=== PATIENT | male | born 1950 | race Caucasian/White ===

== ENCOUNTER 2021-01-10 13:58 | Inpatient (IN) ==
[2021-01-10 14:12] LABS: BORDETELLA PARAPERTUSSIS (PCR) NOT DETECTED (NOT DETECT); BORDETELLA PERTUSSIS (PCR) NOT DETECTED (NOT DETECT); CHLAMYDIA PNEUMONIAE (PCR) NOT DETECTED (NOT DETECT); CORONAVIRUS 229E (PCR) NOT DETECTED (NOT DETECT); CORONAVIRUS HKU1 (PCR) NOT DETECTED (NOT DETECT); CORONAVIRUS NL63 (PCR) NOT DETECTED (NOT DETECT); CORONAVIRUS OC43 (PCR) NOT DETECTED (NOT DETECT); HUMAN METAPNEUMOVIRUS (PCR) NOT DETECTED (NOT DETECT); HUMAN RHINOVIRUS/ENTEROV (PCR) NOT DETECTED (NOT DETECT); INFLUENZA B (PCR) NOT DETECTED (NOT DETECT); MYCOPLASMA PNEUMONIAE (PCR) NOT DETECTED (NOT DETECT); PARAINFLUENZA VIRUS 1 (PCR) NOT DETECTED (NOT DETECT); PARAINFLUENZA VIRUS 2 (PCR) NOT DETECTED (NOT DETECT); PARAINFLUENZA VIRUS 3 (PCR) NOT DETECTED (NOT DETECT); PARAINFLUENZA VIRUS 4 (PCR) NOT DETECTED (NOT DETECT); RESPIRATORY SYNCYTIAL V (PCR) NOT DETECTED (NOT DETECT); SARS_COV_2 (PCR) NOT DETECTED (NOT DETECT)
[2021-01-10 15:02] LABS: ADENOVIRUS (PCR) NOT DETECTED (NOT DETECT)
[2021-01-10] MEDS ORDERED: NITROSTAT SL PRN (16:36)
[2021-01-10] MEDS ORDERED: ATROPINE SULFATE PFS IVP PRN (16:36)
[2021-01-10] MEDS ORDERED: TYLENOL PO PRN (16:36)
[2021-01-10 16:49] VITALS: BMI 34.9
[2021-01-10] MEDS ORDERED: LASIX IVP STA (16:50)
[2021-01-10 16:54] LABS: BASOPHILS % (AUTO) 0.4 % (0.0-3.0); EOSINOPHILS # (AUTO) 0.2 K/ul (0.0-0.7); EOSINOPHILS % (AUTO) 2.1 % (0.0-7.0); HEMATOCRIT 35.3 % (42.0-52.0); HEMOGLOBIN 11.7 g/dl (14.0-18.0); IMMATURE GRANULOCYTE # (AUTO) 0.1 (0.0-1.0); IMMATURE GRANULOCYTE % (AUTO) 0.6 % (0.0-5.0); LYMPHOCYTES # (AUTO) 1.4 K/uL (0.60-3.4); LYMPHOCYTES % (AUTO) 14.8 (10.0-50.0); MEAN CORPUSCULAR HEMOGLOBIN 30.2 pg (27.0-31.0); MEAN CORPUSCULAR HGB CONC 33.1 (31.8-35.4); MONOCYTES # (AUTO) 0.7 K/uL (0.4-2.0); MONOCYTES % (AUTO) 7.5 (0-10); NEUTROPHILS # (AUTO) 7.2 K/ul (2.0-6.9); NEUTROPHILS % (AUTO) 74.6 % (42.2-75.2); PLATELET COUNT 252 10^3/uL (140-440); RDW COEFFICIENT OF VARIATION 12.6 % (11.6-14.8); RED BLOOD COUNT 3.88 10^6/ul (4.70-6.10); WHITE BLOOD COUNT 9.62 K/ul (4.2-10.2)
[2021-01-10 17:05] LABS: ALANINE AMINOTRANSFERASE 16.8 U/L (0-50); ALBUMIN 4.15 g/dL (3.5-5.0); ALKALINE PHOSPHATASE 62.8 U/L (56-119); ASPARTATE AMINO TRANSFERASE 24.3 U/L (17-59); BILIRUBIN,TOTAL 0.66 mg/dL (0.2-1.3); BLOOD UREA NITROGEN 35.1 mg/dL (9-20); CALCIUM 8.99 mg/dL (8.4-10.2); CARBON DIOXIDE 27.8 mmol/L (22-30.0); CHLORIDE 102.3 mmol/L (98-107); CREATINE KINASE 53.4 U/L (55-170); CREATININE 1.72 mg/dL (0.60-1.10); GLUCOSE 121.9 mg/dL (74-106); SODIUM 137.8 mmol/L (134.5-145); TOTAL PROTEIN 7.31 g/dL (6.3-8.2)
[2021-01-10 17:18] LABS: TROPONIN I < 0.012 ng/ml (0.0000-0.120)
[2021-01-10] MEDS: OXYCODONE PO SCH ×2 (17:23→21:19)
--- NOTE | 2021-01-10 17:47 | DI ---
EXAM: CHEST FRONTAL VIEW HISTORY: Shortness of breath COMPARISON: None FINDINGS: Prominent heart size. No acute infiltrates are seen. No vascular congestion. There is n o consolidation, visible pleural fluid or pneumothorax. Bones reveal no acute fracture. IMPRESSION: No acute cardiopulmonary process.
[2021-01-10 18:22] LABS: BILIRUBIN,URINE Negative (NEGATIVE); CLARITY,URINE Clear (CLEAR); COLOR,URINE Yellow (YELLOW); GLUCOSE, URINE (UA) Negative (NEGATIVE); KETONES,URINE Negative (NEGATIVE); LEUKOCYTE ESTERASE ,URINE 1+ (NEGATIVE); NITRITE,URINE Negative (NEGATIVE); PH,URINE 5.5 (5-9); PROTEIN,URINE Negative (NEGATIVE); URINE, BLOOD Negative (NEGATIVE); UROBILINOGEN,URINE 0.2 (0.2)
[2021-01-10 18:24] LABS: SQUAMOUS EPITHELIAL CELL,UR NOT PRESENT (0-5); URINE WBC, MICROSCOPIC 0-2 (0-2)
[2021-01-10] MEDS: KEFLEX PO SCH (21:18)
[2021-01-10] MEDS ORDERED: NON-FORMULARY MEDICATION (Gabapentin 400 MG) PO SCH (22:15)
[2021-01-10] MEDS ORDERED: NON-FORMULARY MEDICATION (Gabapentin 400 mg capsule) PO SCH (22:15)
[2021-01-10] MEDS ORDERED: NEURONTIN ONE (22:21)
[2021-01-11 01:00] LABS: BASOPHILS % (AUTO) 0.2 % (0.0-3.0); EOSINOPHILS # (AUTO) 0.3 K/ul (0.0-0.7); EOSINOPHILS % (AUTO) 2.5 % (0.0-7.0); HEMATOCRIT 34.1 % (42.0-52.0); HEMOGLOBIN 11.3 g/dl (14.0-18.0); IMMATURE GRANULOCYTE # (AUTO) 0.1 (0.0-1.0); IMMATURE GRANULOCYTE % (AUTO) 0.7 % (0.0-5.0); LYMPHOCYTES # (AUTO) 2.1 K/uL (0.60-3.4); MEAN CORPUSCULAR HGB CONC 33.1 (31.8-35.4); MEAN CORPUSCULAR VOLUME 90.5 fl (80.0-94.0); MONOCYTES # (AUTO) 0.8 K/uL (0.4-2.0); MONOCYTES % (AUTO) 7.5 (0-10); NEUTROPHILS # (AUTO) 7.2 K/ul (2.0-6.9); NEUTROPHILS % (AUTO) 69.1 % (42.2-75.2); PLATELET COUNT 237 10^3/uL (140-440); RDW COEFFICIENT OF VARIATION 12.2 % (11.6-14.8); RED BLOOD COUNT 3.77 10^6/ul (4.70-6.10); WHITE BLOOD COUNT 10.36 K/ul (4.2-10.2)
[2021-01-11 01:12] LABS: ALANINE AMINOTRANSFERASE 15.6 U/L (0-50); ALBUMIN 3.75 g/dL (3.5-5.0); ALKALINE PHOSPHATASE 59.4 U/L (56-119); ASPARTATE AMINO TRANSFERASE 23.4 U/L (17-59); BILIRUBIN,TOTAL 0.63 mg/dL (0.2-1.3); BLOOD UREA NITROGEN 35.3 mg/dL (9-20); CALCIUM 8.95 mg/dL (8.4-10.2); CARBON DIOXIDE 27.5 mmol/L (22-30.0); CHLORIDE 104.1 mmol/L (98-107); CREATININE 1.81 mg/dL (0.60-1.10); GLUCOSE 106.9 mg/dL (74-106); POTASSIUM 4.25 mmol/L (3.5-5.1); SODIUM 139.4 mmol/L (134.5-145); TOTAL PROTEIN 6.61 g/dL (6.3-8.2)
[2021-01-11 01:24] LABS: TROPONIN I < 0.012 ng/ml (0.0000-0.120)
[2021-01-11] MEDS: KEFLEX PO SCH ×3 (05:04→20:21)
[2021-01-11] MEDS: BENICAR PO SCH (08:40)
[2021-01-11] MEDS: ASPIRIN EC PO SCH (08:40)
[2021-01-11] MEDS: NORVASC PO SCH (08:41)
[2021-01-11] MEDS: MULTIVITAMIN TABLET PO SCH (08:41)
[2021-01-11] MEDS: OMEGA-3 FISH OIL PO SCH (08:41)
[2021-01-11] MEDS: OXYCODONE PO SCH ×4 (08:42→20:21)
[2021-01-11] MEDS ORDERED: MIRALAX PO PRN (08:51)
[2021-01-11] MEDS ORDERED: HYDROCHLOROTHIAZIDE PO SCH (09:00)
--- NOTE | 2021-01-11 09:55 | PCM.PROG ---
Attending Provider: ATTENDING PROVIDER: Dr. SHELBY GARCIA This patient is seen with Ina Regalado, Nurse Practitioner. DATE OF SERVICE: 01/11/21 SUBJECTIVE: This 70 year old /WHITE M was hospitalized 01/10/21. The patient is lying in bed resting comfortably. He has not had venous scan yet. Right leg edema has somewhat improved. He has voided approximately 10 times since admission. REVIEW OF SYSTEMS: CONSTITUTIONAL: No night sweats. No fatigue, malaise, lethargy. No fever or chills. HEENT: Eyes: No visual changes. No eye pain. No eye discharge. ENT: No runny nose. No epistaxis. No sinus pain. No odynophagia. No congestion. RESPIRATORY: No cough, no congestion. No hemoptysis. No shortness of breath. CARDIOVASCULAR: No angina symptoms. No CHF symptoms. No atypical chest pain for CAD. No palpitations. No orthopnea.. GASTROINTESTINAL: No abdominal pain. No nausea or vomiting. No diarrhea or constipation. No hematemesis. No hematochezia. GENITOURINARY: No urgency. No frequency. No dysuria. No hematuria. No obstructive symptoms. No discharge. No pain. No significant abnormal bleeding. MUSCULOSKELETAL: Right leg pain and swelling. NEUROLOGICAL: Awake, alert, oriented to time, place and person. No headache. No neck pain. No syncope. No seizures. No dizziness. PSYCHIATRIC: Not anxious. No depression. No suicidal thoughts. No homicidal thoughts. SKIN: No rash. ENDOCRINE: No unexplained weight loss. No weight gain. HEMATOLOGIC/LYMPHATIC: No anemia. No purpura. No petechiae. No prolonged or excessive bleeding. No palpable lymph nodes. PHYSICAL EXAMINATION: GENERAL: The patient is awake, alert and oriented, lying/sitting in bed in no distress. VITAL SIGNS: Temperature 97.5 F, Pulse 59, Respiratory Rate 18, BP 103/60, Pu lse Ox 97% HEENT: Head normocephalic, atraumatic. Eyes: Extraocular muscles are intact. Pupils are equal, round and reactive to light and accommodation. Ears: No lesions. Nose appeared normal. Throat: No exudate or erythema. NECK: Supple. No JVD, no carotid bruit. No lymphadenopathy or thyromegaly. LUNGS: Diminished breath sounds. Clear to auscultation. Percussion note normal. Chest symmetrical. HEART: S1, S2, no S3. No murmurs. No cyanosis or clubbing. No ascites. Pulses: Dorsalis pedis and posterior tibial pulses +1 to +2 both sides. ABDOMEN: Soft. Non-tender. Bowel sounds active. No CVA tenderness. No mass felt. EXTREMITIES: Improved erythema right knee. +1 edema right lower extremity. No drainage. Full range of motion of all extremities, equal. NEUROLOGIC: No focal deficit. Cranial nerves II through XII are grossly intact. No headache. No double vision. SKIN: Not dry. Intact. Turgor-normal. LYMPHATIC: No palpable lymph nodes/no lymphedema. MUSCULOSKELETAL: Normal joints with no swelling. Muscle tone is normal. LAB REVIEW: 01/11/21 00:55 01/11/21 00:55 01/11/21 00:55: Sodium 139.4, Potassium 4.25, Chloride 104.1, Carbon Dioxide 27.5, Anion Gap 12.05, BUN 35.3 H, Creatinine 1.81 H, Estimated GFR (MDRD) 37.00, BUN/Creatinine Ratio 19.50, Glucose 106.9 H, Calcium 8.95, Total Bilirubin 0.63, AST 23.4, ALT 15.6, Alkaline Phosphatase 59.4, Total Creatine Kinase 49.0 L, Troponin I < 0.012, Total Protein 6.61, Albumin 3.75, Globulin 2.86, Albumin/Globulin Ratio 1.31 01/11/21 00:55: WBC 10.36 H, RBC 3.77 L, Hgb 11.3 L, Hct 34.1 L, MCV 90.5, MCH 30.0, MCHC 33.1, RDW Coeff of Mary 12.2, Plt Count 237, Immature Gran % (Auto) 0.7, Neut % (Auto) 69.1, Lymph % (Auto) 20.0, [place]erry % (Auto) 7.5, Eos % (Auto) 2.5, Baso % (Auto) 0.2, Neut # (Auto) 7.2 H, Lymph # (Auto) 2.1, [place]erry # (Auto) 0.8, Eos # (Auto) 0.3, Baso # (Auto) 0.0, Immature Gran # (Auto) 0.1 01/10/21 18:14: Urine Color Yellow, Urine Clarity Clear, Urine pH 5.5, Ur Specific [place] 1.015, Urine Protein Negative, Urine Glucose (UA) Negative, Urine Ketones Negative, Urine Blood Negative, Urine Nitrite Negative, Urine Bilirubin Negative, Urine Urobilinogen 0.2, Ur Leukocyte Esterase 1+ H, Urine Microscopic WBC 0-2, Ur Squamous Epith Cells Not present 01/10/21 16:48: WBC 9.62, RBC 3.88 L, Hgb 11.7 L, Hct 35.3 L, MCV 91.0, MCH 30.2, MCHC 33.1, RDW Coeff of Mary 12.6, Plt Count 252, Immature Gran % (Auto) 0.6, Neut % (Auto) 74.6, Lymph % (Auto) 14.8, [place]erry % (Auto) 7.5, Eos % (Auto) 2.1, Baso % (Auto) 0.4, Neut # (Auto) 7.2 H, Lymph # (Auto) 1.4, Ferry # (Auto) 0.7, Eos # (Auto) 0.2, Baso # (Auto) 0.0, Immature Gran # (Auto) 0.1 01/10/21 16:45: Sodium 137.8, Potassium 4.60, Chloride 102.3, Carbon Dioxide 27.8, Anion Gap 12.30, BUN 35.1 H, Creatinine 1.72 H, Estimated GFR (MDRD) 40.00, BUN/Creatinine Ratio 20.40, Glucose 121.9 H, Calcium 8.99, Total Bilirubin 0.66, AST 24.3, ALT 16.8, Alkaline Phosphatase 62.8, Total Creatine Kinase 53.4 L, Troponin I < 0.012, Total Protein 7.31, Albumin 4.15, Globulin 3.16, Albumin/Globulin Ratio 1.31 01/10/21 14:10: Adenovirus (PCR) Not detected, B. pertussis DNA (PCR) Not detected, B.parapertussis DNA PCR Not detected, C. pneumoniae DNA (PCR) Not detected, Coronavirus OC43 (PCR) Not detected, Coronavirus HKU1 (PCR) Not detected, Coronavirus 229E (PCR) Not detected, Coronavirus NL63 (PCR) Not detected, Human Metapneumovir PCR Not detected, Influenza Type A (PCR) Not detected, Influenza B (RT-PCR) Not detected, M. pneumoniae (PCR) Not detected, Parainfluenza 1 (PCR) Not detected, Parainfluenza 2 (PCR) Not detected, Parainfluenza 3 (PCR) Not detected, Parainfluenza 4 (PCR) Not detected, RSV (PCR) Not detected, Entero/Rhino (PCR) Not detected, SARS-CoV-2 (PCR) Not detected ASSESSMENT: Please see below. 1. Right lower extremity pain and swelling status post right total knee. 2. Chronic kidney disease, Stage II to III. PLAN: 1. Continue to hold diuretic. 2. Keep the right leg elevated. 3. Venous scan to be done first thing this morning. 4. Followup with PT consult/Eval. Plan and coordination of the patient's care discussed in the presence of Engine Research Engineer and nurse. CONDITION: Stable SCRIBED BY: Zulema HYMAN scribed while in presence of service performed by Dr. Garcia/Ina Regalado APRN on 01/11/21 ([id number])
--- NOTE | 2021-01-11 12:44 | US ---
EXAM: Ultrasound venous Doppler right and left lower extermity HISTORY: Increased swelling lower extremities COMPARISON: None TECHNIQUE: Venous duplex ultrasound of the right and left lower extremity was performed using color, moulton-scale, and Doppler flow imaging. FINDINGS: There is normal color flow and compression of the right and left common femoral, greater s aphenous, profunda femoral, femoral, popliteal, peroneal, posterior tibial, and anterior tibial veins without evidence of intraluminal thrombus. IMPRESSION: No right or left lower extremity deep venous thrombosis.
--- NOTE | 2021-01-11 15:15 | RS.PTINEVL ---
Subjective - Patient information Date of Evaluation: 01/11/21 Date of Arrival on Unit: 01/10/21 Admitted From:: Home Diagnosis: pain RLE, edema RLE, aftercare following knee joint replacement Usual Living Arrangement: With Spouse Home Environment: House, Stairs (few), Rail Medical History: Hypertension, Arthritis Surgical History: Knee Replacement (RTKR 2 weeks ago) Surgical History Comments:: rotator cuff repair, carpal tunnel surgery, appey Medications: see chart Subjective Information/ Patient Comments:: pt states that he thinks he did too much at home and his leg became more swollen and more painful. - Level of function Prior to this admission, the patient could do the following:: Independent Selfcare, Independent ADL's, Independent Ambulation, Partially Dependent Ambulation, Perform Wall Scraper/Cooking, Drive, Participated in Social Activities Outside home, Volunteer/Work Current Level of Function: Independent Current Equipment Used at Home: cane, bedside commode Pain Assessement - Location R knee Description: Tightness, Sharp, Aching Intensity: 4 Pain Behavior: Facial Grimacing Pain Aggravating Factors: Changing Position, Exercise/Activity, Standing, Walking Pain Alleviating Factors: Ice, Exercise Interventions - Objective Patient Orientation: Person, Place, Time, Situation Observation: pt with edema noted R knee and lower leg. pt incision intact no exudate noted. Range of Motion - ROM Right Upper Extremity AROM: WFL's Left Upper Extremity AROM: WFL's Right Lower Extremity AROM: Slight limitation (R knee AROM flex 82 ext -5, otherwise WFL's) Left Lower Extremity AROM: WFL's Muscle Strength - Muscle Strength Right Upper Extremity Strength: Normal (grossly 5/5) Left Upper Extremity Strength: Normal (grossly 5/5) Right Lower Extremity Strength: Mild Weakness (hip flex 4/5, knee flex/ext 3-/5, ankle DF/PF 4+/5) Left Lower Extremity Strength: Normal (grossly 5/5) Sensation - Sensation Right Upper Extremity Sensation: Intact/Normal Left Upper Extremity Sensation: Intact/Normal Right Lower Extremity Sensation: Impaired Left Lower Extremity Sensation: Impaired Comments: pt with n/t in B feet (toes and dorsum of foot) due to neuropathy Palpation Palpation Findings: Tenderness Comments:: in area of R knee incision Balance - Sitting Balance and Reactions Static Sitting Balance: Normal Dynamic Sitting Balance: Normal - Standing Balance and Reactions Static Standing Balance: Good Dynamic Standing Balance: Fair Functional Mobility - Bed Mobility Rolling R/L: Independent Scooting: Independent Supine to Sit: Independent Sit to Supine: Independent - Transfers Sit to Stand: Independent Stand to Sit: Independent - Safety Awareness Safety Awareness: Good AMOS INDEX SCORE: n/a Ambulation - Ambulation Assistive Device Used: Straight Cane Orthotic/Prosthetic Device: No Distance: 140ft Assistance needed with Ambulation: Independent Quality of Ambulation: antalgic gait, decreased heel strike/toe off gait pattern Factors Affecting Ambulation: Decreased Balance, Weakness, Decreased ROM Treatment time - Units charged Exercise: 1 - Time with patient Length of Evaluation: 18 Total treatment time: 29 Patient Education - Education Patient Education: Home Exercise Program, Education of Plan of Care Teaching Recipient: Patient Teaching Methods: Discussion, Demonstration Assessment - Assessment Problem List:: Decreased level of function, Weakness, Pain limits previous level of function Rehab Potential: Good Further Therapy Indicated?: Yes Candidate for Swing Bed for Therapy Services?: Feel pt does not require swing bed due to high functional level. Evaluation Complexity: HISTORY: Medium, EXAM OF BODY SYSTEMS: Medium, CLINICAL PRESENTATION: Medium, CLINICAL DECISION MAKING: Medium Patient's Goal(s): decrease swelling and improve R knee ROM Short Term Goals GOAL #1: Improve AAROM R knee flex 90 ext -3 Goal to be met by: 01/13/21 GOAL #2: pt rate pain R knee < 4/10 Goal to be met by: 01/13/21 GOAL #3: pt amb with improved heel strike/toe off gait pattern with cane no LOB Goal to be met by: 01/13/21 GOAL #4: Improve dyn stand balance good- Goal to be met by: 01/13/21 GOAL #5: . Skilled Nursing Goals GOAL #1: Improve R knee AROM flex 100 ext 0 Goal to be met by: 01/15/21 GOAL #2: Ascend/descend 4 steps without HR independently Goal to be met by: 01/15/21 GOAL #3: . Plan Plan of Care: Therapeutic EX, Therapeutic Activity Other:: gait training Frequency of Treatment: 1-2 X day, as tolerated Duration of Treatment: 2-3 days Anticipated Discharge Destination: Home Treatment Diagnosis (ICD 10 Codes): aftercare following knee joint replacement. R knee joint stiffness. weakness Has the Physician been added for Co-signature?: Yes
[2021-01-11] MEDS: NEURONTIN PO SCH (20:22)
[2021-01-12] MEDS: KEFLEX PO SCH ×3 (04:20→20:16)
[2021-01-12 05:26] LABS: BASOPHILS % (AUTO) 0.4 % (0.0-3.0); EOSINOPHILS # (AUTO) 0.3 K/ul (0.0-0.7); EOSINOPHILS % (AUTO) 3.4 % (0.0-7.0); HEMATOCRIT 33.3 % (42.0-52.0); HEMOGLOBIN 11.2 g/dl (14.0-18.0); IMMATURE GRANULOCYTE % (AUTO) 0.5 % (0.0-5.0); LYMPHOCYTES # (AUTO) 1.7 K/uL (0.60-3.4); LYMPHOCYTES % (AUTO) 19.9 (10.0-50.0); MEAN CORPUSCULAR HEMOGLOBIN 29.9 pg (27.0-31.0); MEAN CORPUSCULAR HGB CONC 33.6 (31.8-35.4); MONOCYTES # (AUTO) 0.7 K/uL (0.4-2.0); MONOCYTES % (AUTO) 7.8 (0-10); NEUTROPHILS # (AUTO) 5.8 K/ul (2.0-6.9); PLATELET COUNT 249 10^3/uL (140-440); RDW COEFFICIENT OF VARIATION 12.1 % (11.6-14.8); RED BLOOD COUNT 3.74 10^6/ul (4.70-6.10); WHITE BLOOD COUNT 8.51 K/ul (4.2-10.2)
[2021-01-12 05:41] LABS: ALANINE AMINOTRANSFERASE 13.8 U/L (0-50); ALBUMIN 3.47 g/dL (3.5-5.0); ALKALINE PHOSPHATASE 57.3 U/L (56-119); ASPARTATE AMINO TRANSFERASE 20.2 U/L (17-59); BILIRUBIN,TOTAL 0.68 mg/dL (0.2-1.3); CALCIUM 8.89 mg/dL (8.4-10.2); CARBON DIOXIDE 26.4 mmol/L (22-30.0); CHLORIDE 104.6 mmol/L (98-107); CREATININE 1.5 mg/dL (0.60-1.10); GLUCOSE 102.1 mg/dL (74-106); POTASSIUM 4.21 mmol/L (3.5-5.1); SODIUM 137.9 mmol/L (134.5-145); TOTAL PROTEIN 6.21 g/dL (6.3-8.2)
[2021-01-12] MEDS ORDERED: CITRATE OF MAGNESIA PO ONE (08:54)
[2021-01-12] MEDS: BENICAR PO SCH (09:24)
[2021-01-12] MEDS: ASPIRIN EC PO SCH (09:24)
[2021-01-12] MEDS: NORVASC PO SCH (09:24)
[2021-01-12] MEDS: MULTIVITAMIN TABLET PO SCH (09:25)
[2021-01-12] MEDS: OXYCODONE PO SCH ×4 (09:25→20:56)
[2021-01-12] MEDS: OMEGA-3 FISH OIL PO SCH (09:25)
--- NOTE | 2021-01-12 13:06 | PN ---
DATE OF SERVICE: 01/10/21 SUBJECTIVE: The patient was seen and examined in the office. The patient came in for followup of right total knee replacement done nearly two to three weeks ago. The patient had gone through swing bed with physical therapy. The patient's is more or less handicapped and ends up helping the when he was not in position to do that. He has not had time to keep his legs up, rest and do his physical therapy. REVIEW OF SYSTEMS: CONSTITUTIONAL: No night sweats. No fatigue, malaise, lethargy. No fever or chills. HEENT: Eyes: No visual changes. No eye pain. No eye discharge. ENT: No runny nose. No epistaxis. No sinus pain. No sore throat. No odynophagia. No congestion. RESPIRATORY: No cough, no congestion. No hemoptysis. No shortness of breath. CARDIOVASCULAR: No angina symptoms. No CHF symptoms. No atypical chest pain for CAD. No palpitations. No PND. No orthopnea. GASTROINTESTINAL: No abdominal pain. No nausea or vomiting. No diarrhea or constipation. No hematemesis. No hematochezia. GENITOURINARY: No urgency. No frequency. No dysuria. No hematuria. No obstructive symptoms. No discharge. No pain. No significant abnormal bleeding. MUSCULOSKELETAL: Stiffness of the right knee, inability to walk because of heaviness of the leg. NEUROLOGICAL: No headache. No neck pain. No syncope. No seizures. No dizziness. PSYCHIATRIC: Not anxious. No depression. No suicidal thoughts. No homicidal thoughts. SKIN: No rash. No lesions. No wounds. ENDOCRINE: No unexplained weight loss. No weight gain. HEMATOLOGIC/LYMPHATIC: No anemia. No purpura. No petechiae. No prolonged or excessive bleeding. No palpable lymph nodes. PHYSICAL EXAMINATION: HEENT: Head normocephalic, atraumatic. Eyes: Extraocular muscles are intact. Pupils are equal, round and reactive to light and accommodation. Ears: No lesions. Nose appeared normal. Throat: No exudate or erythema. NECK: Supple. No JVD, no carotid bruit. No lymphadenopathy or thyromegaly. LUNGS: Clear to auscultation. Percussion note normal. Chest symmetrical. HEART: S1, S2, no S3. No murmurs. No cyanosis or clubbing. No ascites. Pulses: Dorsalis pedis and posterior tibial pulses +1 to +2 bilaterally. ABDOMEN: Soft. Nontender. Bowel sounds active. No CVA tenderness. No mass felt. EXTREMITIES: Right knee is swollen. No evidence of any infection. Scar looks clean. There is swelling of the tissue, mild to moderate. Calf swelling along with ankle swelling. Mild redness. Full range of motion of all extremities, equal. NEUROLOGIC: No focal deficit. Cranial nerves II through XII are grossly intact. No headache. No double vision. SKIN: Not dry. Intact. Turgor - normal. LYMPHATIC: No palpable lymph nodes/no lymphedema. MUSCULOSKELETAL: Normal joints with no swelling. Muscle tone is normal. ASSESSMENT: 1. Right lower extremity pain and swelling, status post right total knee. PLAN: 1. Hospitalize the patient. 2. Keep the leg elevated. 3. IV Lasix. 4. Start antibiotics. 5. We will do venous scan. 6. Telemetry. 7. Monitor the patient's cardiovascular status. Condition seems to be stable. TIME SPENT: More than 30 minutes. Plan and coordination of the patient's care discussed in the presence of nurse. PRABHJOT
[2021-01-12] MEDS: NEURONTIN PO SCH (20:16)
[2021-01-13 05:26] VITALS: BP 109/64; TEMP 97.7
[2021-01-13] MEDS: KEFLEX PO SCH (05:27)
[2021-01-13 05:42] LABS: BASOPHILS % (AUTO) 0.5 % (0.0-3.0); EOSINOPHILS # (AUTO) 0.3 K/ul (0.0-0.7); EOSINOPHILS % (AUTO) 3.3 % (0.0-7.0); HEMATOCRIT 33.4 % (42.0-52.0); IMMATURE GRANULOCYTE % (AUTO) 0.5 % (0.0-5.0); LYMPHOCYTES # (AUTO) 1.7 K/uL (0.60-3.4); MEAN CORPUSCULAR HEMOGLOBIN 29.8 pg (27.0-31.0); MEAN CORPUSCULAR HGB CONC 32.9 (31.8-35.4); MEAN CORPUSCULAR VOLUME 90.5 fl (80.0-94.0); MONOCYTES # (AUTO) 0.6 K/uL (0.4-2.0); NEUTROPHILS # (AUTO) 5.2 K/ul (2.0-6.9); NEUTROPHILS % (AUTO) 65.7 % (42.2-75.2); PLATELET COUNT 232 10^3/uL (140-440); RDW COEFFICIENT OF VARIATION 12.3 % (11.6-14.8); RED BLOOD COUNT 3.69 10^6/ul (4.70-6.10); WHITE BLOOD COUNT 7.88 K/ul (4.2-10.2)
[2021-01-13 05:53] LABS: ALANINE AMINOTRANSFERASE 13.5 U/L (0-50); ALBUMIN 3.55 g/dL (3.5-5.0); ALKALINE PHOSPHATASE 58.5 U/L (56-119); ASPARTATE AMINO TRANSFERASE 23.7 U/L (17-59); BILIRUBIN,TOTAL 0.6 mg/dL (0.2-1.3); BLOOD UREA NITROGEN 29.6 mg/dL (9-20); CALCIUM 8.69 mg/dL (8.4-10.2); CARBON DIOXIDE 29.1 mmol/L (22-30.0); CHLORIDE 104.8 mmol/L (98-107); CREATININE 1.53 mg/dL (0.60-1.10); GLUCOSE 99.3 mg/dL (74-106); POTASSIUM 4.36 mmol/L (3.5-5.1); SODIUM 136.8 mmol/L (134.5-145); TOTAL PROTEIN 6.28 g/dL (6.3-8.2)
[2021-01-13] MEDS: OMEGA-3 FISH OIL PO SCH (08:59)
[2021-01-13] MEDS: OXYCODONE PO SCH (08:59)
[2021-01-13] MEDS: BENICAR PO SCH (08:59)
[2021-01-13] MEDS: NORVASC PO SCH (09:00)
[2021-01-13] MEDS: ASPIRIN EC PO SCH (09:00)
[2021-01-13] MEDS: MULTIVITAMIN TABLET PO SCH (09:00)
--- NOTE | 2021-01-13 09:34 | PCM.PROG ---
Attending Provider: ATTENDING PROVIDER: Dr. SHELBY GARCIA This patient is seen with Ina Regalado, Nurse Practitioner. DATE OF SERVICE: 01/13/21 SUBJECTIVE: This 70 year old /WHITE M was hospitalized 01/10/21. The patient is resting comfortably. Swelling right lower extremity has improved. The patient is ready to go home. Kidney function has improved. We have discussed him taking it easy and not over doing it when he gets home. Venous scan was negative. Redness has improved. No drainage. REVIEW OF SYSTEMS: CONSTITUTIONAL: No night sweats. No fatigue, malaise, lethargy. No fever or chills. HEENT: Eyes: No visual changes. No eye pain. No eye discharge. ENT: No runny nose. No epistaxis. No sinus pain. No odynophagia. No congestion. RESPIRATORY: No cough, no congestion. No hemoptysis. No shortness of breath. CARDIOVASCULAR: No angina symptoms. No CHF symptoms. No atypical chest pain for CAD. No palpitations. No orthopnea.. GASTROINTESTINAL: No abdominal pain. No nausea or vomiting. No diarrhea or constipation. No hematemesis. No hematochezia. GENITOURINARY: No urgency. No frequency. No dysuria. No hematuria. No obstructive symptoms. No discharge. No pain. No significant abnormal bleeding. MUSCULOSKELETAL: No musculoskeletal pain; no joint swelling. Right knee pain. NEUROLOGICAL: Awake, alert, oriented to time, place and person. No headache. No neck pain. No syncope. No seizures. No dizziness. PSYCHIATRIC: Not anxious. No depression. No suicidal thoughts. No homicidal thoughts. SKIN: No rash. No lesions. No wounds. ENDOCRINE: No unexplained weight loss. No weight gain. HEMATOLOGIC/LYMPHATIC: No anemia. No purpura. No petechiae. No prolonged or excessive bleeding. No palpable lymph nodes. PHYSICAL EXAMINATION: GENERAL: The patient is awake, alert and oriented, sitting in bed in no distress. VITAL SIGNS: Temperature 97.7 F, Pulse 59, Respiratory Rate 18, BP 109/64, Pulse Ox 97% HEENT: Head normocephalic, atraumatic. Eyes: Extraocular muscles are intact. Pupils are equal, round and reactive to light and accommodation. Ears: No lesions. Nose appeared normal. Throat: No exudate or erythema. NECK: Supple. No JVD, no carotid bruit. No lymphadenopathy or thyromegaly. LUNGS: Diminished breath sounds. Clear to auscultation. Percussion note normal. Chest symmetrical. HEART: S1, S2, no S3. No murmurs. No cyanosis or clubbing. No ascites. Pulses: Dorsalis pedis and posterior tibial pulses +1 to +2 both sides. ABDOMEN: Soft. Non-tender. Bowel sounds active. No CVA tenderness. No mass felt. EXTREMITIES: No edema. Full range of motion of all extremities, equal. Incision right knee is clean, dry and intact. Minimal erythema. Generalized swelling right knee. NEUROLOGIC: No focal deficit. Cranial nerves II through XII are grossly intact. No headache. No double vision. SKIN: Not dry. Intact. Turgor-normal. LYMPHATIC: No palpable lymph nodes/no lymphedema. MUSCULOSKELETAL: Normal joints with no swelling. Muscle tone is normal. LAB REVIEW: 01/13/21 05:38 01/13/21 05:38 01/13/21 05:38: Sodium 136.8, Potassium 4.36, Chloride 104.8, Carbon Dioxide 29.1, Anion Gap 7.26, BUN 29.6 H, Creatinine 1.53 H, Estimated GFR (MDRD) 45.00, BUN/Creatinine Ratio 19.34, Glucose 99.3, Calcium 8.69, Total Bilirubin 0.60, AST 23.7, ALT 13.5, Alkaline Phosphatase 58.5, Total Protein 6.28 L, Albumin 3.55, Globulin 2.73, Albumin/Globulin Ratio 1.30 01/13/21 05:38: WBC 7.88, RBC 3.69 L, Hgb 11.0 L, Hct 33.4 L, MCV 90.5, MCH 29.8, MCHC 32.9, RDW Coeff of Mary 12.3, Plt Count 232, Immature Gran % (Auto) 0.5, Neut % (Auto) 65.7, Lymph % (Auto) 22.0, [place] % (Auto) 8.0, Eos % (Auto) 3.3, Baso % (Auto) 0.5, Neut # (Auto) 5.2, Lymph # (Auto) 1.7, [place] # (Auto) 0.6, Eos # (Auto) 0.3, Baso # (Auto) 0.0, Immature Gran # (Auto) 0.0 ASSESSMENT: Please see below. 1. Right lower extremity edema, resolved 2. Status post right knee replacement. 3. Renal azotemia 4. Chronic kidney disease stage 3 PLAN: 1. Discharge home 2 No NSAIDS 3. Continue Benicar/HCTZ 4. Continue Aspirin 81mg BID 5. Will start outpatient PT at [facility] on Sunday Plan and coordination of the patient's care discussed in the presence of Discovery Manager and nurse. SCRIBED BY: Zulema ROPER scribed while in presence of service performed by Dr. Garcia/Ina Regalado, DAGMAR on 01/13/21 ([id number])
--- NOTE | 2021-01-13 11:53 | CM.DICTOOL ---
ADMISSION: 01/10/21 16:15 DISCHARGE: JANUARY 13, 2021 DATE OF SERVICE: 01/13/21 FINAL DIAGNOSIS INCREASED RIGHT LOWER EXTREMITY PAIN AND SWELLING- RESOLVED STATUS POST RIGHT TOTAL KNEE - 12/28/2020 DR. DÍAZ RENAL AZOTEMIA CHRONIC KIDNEY DISEASE, STAGE 3 GAIT DISTURBANCE HX: LVH CONSTIPATION HYPERTENSION HYPERLIPIDEMIA BACK PAIN DDD, LUMBAR LUMBAR RADICULOPATHY SPINAL STENOSIS GENERALIZED OA BOTH KNEES OBESITY OBSTRUCTIVE SLEEP APNEA- USES A CPAP SURGICAL HISTORY: APPENDECTOMY BACK SURGERY HAND SURGERY LUMBAR SPINE SURGERY L3-L4-5 DECOMPRESSION WITH COFLEX INSTR- 01/14/2019 CLARA KWON MD ROTATOR CUFF REPAIR LEFT KNEE CORTISONE INJECTION RT TKR - 12/28/2020 ANDI DÍAZ MD CODE STATUS: FULL CODE LAST VITALS Temp Pulse Resp BP Pulse Ox 97.7 F 59 L 19 109/64 95 01/13/21 05:26 01/13/21 05:26 01/13/21 08:00 01/13/21 05:26 01/13/21 10:00 TAKE THESE MEDICATIONS AT HOME Acetaminophen (Acetaminophen 325 Mg Tablet) 650 mg PO Q6H PRN -- ( NEW) PRN Reason: Headache Last Admin: 01/12/21 04:20 Dose: 650 mg Amlodipine Besylate (Amlodipine Besylate 5 Mg Tablet) 10 mg PO DAILY [facility] Aspirin (Aspirin 81 Mg Tablet.) 81 mg PO BID [facility] UNTIL JANUARY 27, 2021 THEN DAILY -- (CHANGED) Last Admin: 01/13/21 09:00 Dose: 81 mg Cephalexin (Cephalexin 500 Mg Capsule) 500 mg PO TID PREMA X 7 MORE DAYS -- ( NEW) Stop: 01/15/21 22:00 Last Admin: 01/13/21 05:27 Dose: 500 mg Fish Oil ([place]-3/Dha/Epa/Fish Oil 1,000 Mg Capsule) 1,000 mg PO DAILY [facility] Last Admin: 01/13/21 08:59 Dose: 1,000 mg Gabapentin (Gabapentin 100 Mg Capsule) 400 mg PO BEDTIME PRE[facility] Last Admin: 01/12/21 20:16 Dose: 400 mg Multivitamins (Multivitamin 1 Tab) 1 tab PO DAILY [facility] Last Admin: 01/13/21 09:00 Dose: 1 tab Olmesartan (Olmesartan Medoxomil 20 Mg Tablet) 40 mg PO DAILY [facility] Last Admin: 01/13/21 08:59 Dose: 40 mg Oxycodone HCl (Oxycodone Hcl 5 Mg Tablet) 10 mg PO QID PRE[facility] Last Admin: 01/13/21 08:59 Dose: 10 mg Polyethylene Glycol (Polyethylene Glycol 17 Gm Powd.Pack) 17 gm PO DAILY PRN -- ( NEW) ALLERGIES No Known Allergies Allergy (Verified 01/23/20 11:20) DISCONTINUED MEDICATIONS NONE NEW PRESCRIPTIONS: 1). KEFLEX 500 MG PO TID X 7 DAYS 2). ASPIRIN 81 MG PO BID UNTIL JANUARY 27, 2021 THEN DAILY 3). MIRALAX 17 GRAMS ONE CAPFUL IN 8 OUNCES OF FLUID DAILY NEEDED 4). TYLENOL 650 MG PO EVERY 6 HOURS NEEDED FOR PAIN SMOKING: N/A DISEASE SPECIFIC EDUCATION: ACTIVITY PRECAUTIONS TKA PRECAUTIONS FALL PRECAUTIONS MEDICAL FOLLOW UP APPOINTMENTS MEDICATION CHANGES NO NSAIDS ( EXCEPT ASPIRIN) COVID LAB REVIEW: 01/13/21 05:38 01/13/21 05:38 01/13/21 05:38: Sodium 136.8, Potassium 4.36, Chloride 104.8, Carbon Dioxide 29.1, Anion Gap 7.26, BUN 29.6 H, Creatinine 1.53 H, Estimated GFR (MDRD) 45.00, BUN/Creatinine Ratio 19.34, Glucose 99.3, Calcium 8.69, Total Bilirubin 0.60, AST 23.7, ALT 13.5, Alkaline Phosphatase 58.5, Total Protein 6.28 L, Albumin 3.55, Globulin 2.73, Albumin/Globulin Ratio 1.30 01/13/21 05:38: WBC 7.88, RBC 3.69 L, Hgb 11.0 L, Hct 33.4 L, MCV 90.5, MCH 29.8, MCHC 32.9, RDW Coeff of Mary 12.3, Plt Count 232, Immature Gran % (Auto) 0.5, Neut % (Auto) 65.7, Lymph % (Auto) 22.0, [place] % (Auto) 8.0, Eos % (Auto) 3.3, Baso % (Auto) 0.5, Neut # (Auto) 5.2, Lymph # (Auto) 1.7, [place] # (Auto) 0.6, Eos # (Auto) 0.3, Baso # (Auto) 0.0, Immature Gran # (Auto) 0.0 PLAN: DISCHARGE: HOME TODAY JANUARY 13, 2021 , LIVES WITH ACTIVITY: UP WITH CANE AND TO USE WALKER NEEDED WHEN TIRED NO STRENUOUS ACTIVITY, ELEVATE RT LEG HIGHER THAN YOUR HIP WHEN NOT UP WALKING STAY IN DOORS DURING HOT AND HUMID WEATHER NO DRIVING UNTIL RELEASED PER DR. DÍAZ RECOGNIZE PANDEMIC PRECAUTIONS FALL PRECAUTIONS NO NSAIDS SUCH IBUPROFEN AND ALIEVE OUTPATIENT THERAPY: @ [facility] THERAPY DEPARTMENT INITIAL APPOINTMENT SUNDAY, JANUARY 17, 2021 @ 130 PM DIET: REGULAR MD FOLLOW UP: DR. GARCIA/ MARIAA KELSEY APRN/ REVA WILLIAMSON APRN TO SEE IN THE OFFICE ON JANUARY 18, 2021 @ 900 AM HAS AN APPOINTMENT WITH DR. DÍAZ AT [facility], JANUARY 24, 2021 @ 850 AM CODE STATUS: FULL CODE MR LOPEZ REMAINS ALERT AND ORIENTED X 4. HE ADMITS THAT HE DID TO MUCH WHEN HE LEFT SWING BED AFTER 12/28/2020 RT TKR. HE VERBALIZES ACTIVITY RESTRICTIONS. BREATHING IS WNL. RT LEG/KNEE WITH LESS SWELLING, LESS REDNESS AND NO INCISIONAL DRAINAGE . HAS NOT HAD MUCH PAIN AND AT TIMES HE ASK TO HOLD THE OXYCODONE. HE IS UP WITH A CANE IN THE HALLWAY AND HAS PROGRESSED WITH GOALS RELATED TO FLEX OF RT KNEE AND AROM. SKIN WARM AND DRY AND INTACT. NUTRITIONAL INTAKE HAS BEEN 100% WITH OCCASIONAL EXCEPTION OF A 75% MEAL INTAKE. FLUID INTAKE SUBSTANTIAL. CONTINENT OF BOWEL AND BLADDER. LAST BM 01/13/2021. HE IS TO FOLLOW UP WITH [facility]. HE IS TO HAVE OUTPATIENT THERAPY ON SUNDAY. MD MARIAA ESCOBAR APRN ALYCE HANNAN, APRN
--- NOTE | 2021-01-13 13:13 | PN ---
DATE OF SERVICE: 01/11/2021 SUBJECTIVE: The patient was seen and examined with the Nurse Practitioner. The patient's right lower extremity is much better. The swelling is way half down practically trace swelling noted. The scar seems to be healing very well. No signs of any infection. Negative venous scan for DVT. We will restart the patient on 81mg Aspirin twice a day. Hold Lasix the second dose in the morning because of abnormal kidney function. The patient's problem when he goes home he has to do a lot of things for his handicap . Cardiovascular status is stable with no evidence of any coronary insufficiency or CHF clinically as well as by symptoms. TIME SPENT: More than 30 minutes. Plan and coordination of the patient's care discussed in the presence of nurse. PRABHJOT
--- NOTE | 2021-01-13 13:31 | PN ---
DATE OF SERVICE: 01/12/2021 SUBJECTIVE: 70 year old white male hospitalized with right lower extremity edema, swelling with stiffness. The patient is remarkably improved with just one shot of Lasix , leg elevation and rest. At home as mentioned earlier in the notes the patient has been very busy taking care of the who is very handicap. The patient's creatinine and BUN has stayed steady. He is feeling a lot better. The leg edema has practically resolved. Incision on the right knee seems to be healing well. REVIEW OF SYSTEMS: CONSTITUTIONAL: No night sweats. No fatigue, malaise, lethargy. No fever or chills. HEENT: Eyes: No visual changes. No eye pain. No eye discharge. ENT: No runny nose. No epistaxis. No sinus pain. No sore throat. No odynophagia. No congestion. RESPIRATORY: No cough, no congestion. No hemoptysis. No shortness of breath. CARDIOVASCULAR: No angina symptoms. No CHF symptoms. No atypical chest pain for CAD. No palpitations. No PND. No orthopnea. GASTROINTESTINAL: No abdominal pain. No nausea or vomiting. No diarrhea or constipation. No hematemesis. No hematochezia. Appetite has improved. GENITOURINARY: No urgency. No frequency. No dysuria. No hematuria. No obstructive symptoms. No discharge. No pain. No significant abnormal bleeding. MUSCULOSKELETAL: No musculoskeletal pain; no joint swelling. Stiffness is much less. Walking with therapy. NEUROLOGICAL: No headache. No neck pain. No syncope. No seizures. No dizziness. PSYCHIATRIC: Not anxious. No depression. No suicidal thoughts. No homicidal thoughts. SKIN: No rash. No lesions. No wounds. ENDOCRINE: No unexplained weight loss. No weight gain. HEMATOLOGIC/LYMPHATIC: No anemia. No purpura. No petechiae. No prolonged or excessive bleeding. No palpable lymph nodes. PHYSICAL EXAMINATION: VITAL SIGNS: Temperature 98, pulse 55, respiratory rate 16, blood pressure 108/60 and pulse ox 97%. HEENT: Head normocephalic, atraumatic. Eyes: Extraocular muscles are intact. Pupils are equal, round and reactive to light and accommodation. Ears: No lesions. Nose appeared normal. Throat: No exudate or erythema. NECK: Supple. No JVD, no carotid bruit. No lymphadenopathy or thyromegaly. LUNGS: Clear to auscultation. Percussion note normal. Chest symmetrical. HEART: S1, S2, no S3. No murmurs. No cyanosis or clubbing. No ascites. Pulses: Dorsalis pedis and posterior tibial pulses +1 to +2 bilaterally. ABDOMEN: Soft. Nontender. Bowel sounds active. No CVA tenderness. No mass felt. EXTREMITIES: No edema. Full range of motion of all extremities, equal. Right knee swollen. Right calf muscles has practically lost any swelling. NEUROLOGIC: No focal deficit. Cranial nerves II through XII are grossly intact. No headache. No double vision. SKIN: Not dry. Intact. Turgor - normal. LYMPHATIC: No palpable lymph nodes/no lymphedema. MUSCULOSKELETAL: Normal joints with no swelling. Muscle tone is normal. ASSESSMENT: 1. Remarkable improvement with less edema of right lower extremity. Venous scan was negative. 2. Kidney functions are stable. PLAN: 1. Discharge to the patient home tomorrow. 2. No evidence of CHF or coronary insufficiency. TIME SPENT: More than 30 minutes. Plan and coordination of the patient's care discussed in the presence of nurse. PRABHJOT
--- NOTE | 2021-01-14 09:47 | HP ---
DATE OF SERVICE: 01/10/2021 REASON FOR HOSPITALIZATION/HISTORY OF PRESENT ILLNESS: The patient came in for hospital followup. He has worsening swelling and leg with pain to right knee. The patient had right total knee replacement. 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 HEENT: No sinus drainage, no sore throat. RESPIRATORY: No cough, no congestion. CARDIOVASCULAR: No atypical chest pain for coronary artery disease. No angina, CHF symptoms, palpitations or shortness of breath. GASTROINTESTINAL: No melena or abdominal pain. No GERD. GENITOURINARY: No hematuria, no prostatism, no polyuria. PATTERN DATA OPERATOR: No blackout, no dizziness, no headache, no double vision. MUSCULOSKELETAL: No osteoarthritis pain, Joint swelling right knee. ENDOCRINE: No weight loss, no weight gain. SKIN: Not dry, no rash. PSYCHIATRIC: Not anxious, no depression, no suicidal thoughts, no homicidal thoughts. SOCIAL HISTORY: Marital Status: . Alcohol Usage: No. Tobacco Usage: No. MEDICATIONS: Fish oil daily Aspirin 81mg daily Vitamins daily Darren 40/10 daily Lasix 20mg PRN K-tab 10meq PRN Tramadol 50mg BID [place] 7.5mg Oxycodone 10mg QID ALLERGIES: No known allergies PHYSICAL EXAMINATION: V/S: Pulse 74, blood pressure 110/56, temperature 98.2, oxygen saturation 95%. BMI 35, weight 265.4 and height 6'1. GENERAL APPEARANCE: Oriented times three. HEENT: Normal. NECK: No JVP, no bruits. RESPIRATORY: Lungs are clear. CARDIOVASCULAR: S1, S2, no S3, no murmur. No cyanosis, clubbing. No ascites. GI/ABDOMEN: No tenderness. Bowel sounds are active. EXTREMITIES: edema, pulses +1, equal. Incision mild erythema top with scant drainage. PATTERN DATA OPERATOR: Deep tendon reflexes, sensory, motor and gait all normal. RECTAL: Dr. Patterson 11/30 refused repeat./PROSTATE: 07/08 (2.5) . ASSESSMENT: 1. Increasing right lower extremity edema with gait disturbance. 2. Status post right total knee replacement 3. 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 Generalized Osteoarthritis 5. Osteoarthritis both knees 6. Hypertension 7. LVH 8. Dyslipidemia 9. Obstructive sleep apnea 10.Obesity 11.Chronic kidney disease stage 3 PLAN: 1. Admit 2. Routine telemetry orders 3. CBC and CMP now 4. Continue home medications 5. Stat bilateral lower extremity venous scan 6. 40mg IV Lasix times one 7. Regular diet 8. Ice pack to right knee Q 2-3 hours 9. Elevate legs 10.Wound cultures-suture line right knee 11.Keflex 500mg PO TID 12.PT evaluation TIME SPENT: More than 70 minutes. MTDD
--- NOTE | 2021-01-14 14:08 | DS ---
DATE OF SERVICE: 01/13/2021 FINAL DIAGNOSIS: INCREASED RIGHT LOWER EXTREMITY PAIN AND SWELLING- RESOLVED STATUS POST RIGHT TOTAL KNEE - 12/28/2020 DR. DÍAZ RENAL AZOTEMIA CHRONIC KIDNEY DISEASE, STAGE 3 GAIT DISTURBANCE HISTORY: LVH CONSTIPATION HYPERTENSION HYPERLIPIDEMIA BACK PAIN DDD, LUMBAR LUMBAR RADICULOPATHY SPINAL STENOSIS GENERALIZED OA BOTH KNEES OBESITY OBSTRUCTIVE SLEEP APNEA- USES A CPAP SURGICAL HISTORY: APPENDECTOMY BACK SURGERY HAND SURGERY LUMBAR SPINE SURGERY L3-L4-5 DECOMPRESSION WITH COFLEX INSTR- 01/14/2019 CLARA KWON MD ROTATOR CUFF REPAIR LEFT KNEE CORTISONE INJECTION RT TKR - 12/28/2020 ANDI DÍAZ MD CODE STATUS: FULL CODE LAST VITALS: Temp Pulse Resp BP Pulse Ox 97.7 F 59 L 19 109/64 95 01/13/21 05:26 01/13/21 05:26 01/13/21 08:00 01/13/21 05:26 01/13/21 10:00 DISCHARGE INSTRUCTIONS: DISCHARGE: HOME TODAY JANUARY 13, 2021 , LIVES WITH . FOLLOW UP: DR. GARCIA/ MARIAA KELSEY APRN/ REVA WILLIAMSON APRN TO SEE IN THE OFFICE ON JANUARY 18, 2021 @ 900 AM. HAS AN APPOINTMENT WITH DR. DÍAZ AT [facility], JANUARY 24, 2021 @ 850 AM. OUTPATIENT THERAPY: @ [facility] THERAPY DEPARTMENT INITIAL APPOINTMENT SUNDAY, JANUARY 17, 2021 @ 130 PM. CODE STATUS: FULL CODE. TAKE THESE MEDICATIONS AT HOME: Acetaminophen (Acetaminophen 325 Mg Tablet) 650 mg PO Q6H PRN -- ( NEW) PRN Reason: Headache Last Admin: 01/12/21 04:20 Dose: 650 mg Amlodipine Besylate (Amlodipine Besylate 5 Mg Tablet) 10 mg PO DAILY [facility] Aspirin (Aspirin 81 Mg Tablet.) 81 mg PO BID [facility] UNTIL JANUARY 27, 2021 THEN DAILY -- (CHANGED) Last Admin: 01/13/21 09:00 Dose: 81 mg Cephalexin (Cephalexin 500 Mg Capsule) 500 mg PO TID [facility] X 7 MORE DAYS -- ( NEW) Stop: 01/15/21 22:00 Last Admin: 01/13/21 05:27 Dose: 500 mg Fish Oil ([place]-3/Dha/Epa/Fish Oil 1,000 Mg Capsule) 1,000 mg PO DAILY [facility] Last Admin: 01/13/21 08:59 Dose: 1,000 mg Gabapentin (Gabapentin 100 Mg Capsule) 400 mg PO BEDTIME [facility] Last Admin: 01/12/21 20:16 Dose: 400 mg Multivitamins (Multivitamin 1 Tab) 1 tab PO DAILY [facility] Last Admin: 01/13/21 09:00 Dose: 1 tab Olmesartan (Olmesartan Medoxomil 20 Mg Tablet) 40 mg PO DAILY [facility] Last Admin: 01/13/21 08:59 Dose: 40 mg Oxycodone HCl (Oxycodone Hcl 5 Mg Tablet) 10 mg PO QID [facility] Last Admin: 01/13/21 08:59 Dose: 10 mg Polyethylene Glycol (Polyethylene Glycol 17 Gm Powd.Pack) 17 gm PO DAILY PRN -- ( NEW) ALLERGIES: No Known Allergies Allergy (Verified 01/23/20 11:20) DISCONTINUED MEDICATIONS: NONE NEW PRESCRIPTIONS: 1). KEFLEX 500 MG PO TID X 7 DAYS 2). ASPIRIN 81 MG PO BID UNTIL JANUARY 27, 2021 THEN DAILY 3). MIRALAX 17 GRAMS ONE CAPFUL IN 8 OUNCES OF FLUID DAILY NEEDED 4). TYLENOL 650 MG PO EVERY 6 HOURS NEEDED FOR PAIN SMOKING: N/A DISEASE SPECIFIC EDUCATION: ACTIVITY PRECAUTIONS TKA PRECAUTIONS FALL PRECAUTIONS MEDICAL FOLLOW UP APPOINTMENTS MEDICATION CHANGES NO NSAIDS ( EXCEPT ASPIRIN) COVID LAB REVIEW: 01/13/21 05:38 01/13/21 05:38 01/13/21 05:38: Sodium 136.8, Potassium 4.36, Chloride 104.8, Carbon Dioxide 29.1, Anion Gap 7.26, BUN 29.6 H, Creatinine 1.53 H, Estimated GFR (MDRD) 45.00, BUN/Creatinine Ratio 19.34, Glucose 99.3, Calcium 8.69, Total Bilirubin 0.60, AST 23.7, ALT 13.5, Alkaline Phosphatase 58.5, Total Protein 6.28 L, Albumin 3.55, Globulin 2.73, Albumin/Globulin Ratio 1.30 01/13/21 05:38: WBC 7.88, RBC 3.69 L, Hgb 11.0 L, Hct 33.4 L, MCV 90.5, MCH 29.8, MCHC 32.9, RDW Coeff of Mary 12.3, Plt Count 232, Immature Gran % (Auto) 0.5, Neut % (Auto) 65.7, Lymph % (Auto) 22.0, [place] % (Auto) 8.0, Eos % (Auto) 3.3, Baso % (Auto) 0.5, Neut # (Auto) 5.2, Lymph # (Auto) 1.7, [place] # (Auto) 0.6, Eos # (Auto) 0.3, Baso # (Auto) 0.0, Immature Gran # (Auto) 0.0 ACTIVITY: UP WITH CANE AND TO USE WALKER NEEDED WHEN TIRED NO STRENUOUS ACTIVITY, ELEVATE RT LEG HIGHER THAN YOUR HIP WHEN NOT UP WALKING STAY IN DOORS DURING HOT AND HUMID WEATHER NO DRIVING UNTIL RELEASED PER DR. DÍAZ RECOGNIZE PANDEMIC PRECAUTIONS FALL PRECAUTIONS NO NSAIDS SUCH IBUPROFEN AND ALIEVE DIET: REGULAR HOSPITAL COURSE: 70 year old white male who was recently admitted and discharged from our swing bed after having a right total knee replacement. He came to our office on 01/10/2021 with increased swelling and redness and pain in the right lower extremity. He was admitted. Venous scan of both extremities was negative. He did have some initial redness around the incision and generalized edema. He was given Lasix 40mg IV times one. He does have underline chronic kidney disease. His creatinine did go up to 1.8 on the day after admission however today it is back down to 1.53. Just of the course of the past several days leg edema has significantly improved. Redness has improved. He was initially started on Keflex 500mg TID PO on admission. We will continue this for the next 7 days. I do feel that he went home and probably was more active than he should have been. We have instructed him to go home with frequent rest periods. Continue to ice several times a day on the knee. Hgb is stable. Kidney function is stable. We will follow closely and followup next week in the office. TIME SPENT: More than 60 minutes. KRISTINED
--- NOTE | 2021-01-17 10:38 | PN ---
DATE OF SERVICE: 01/13/2021 SUBJECTIVE: The patient was seen and examined with the Nurse Practitioner. The patient is up and about. The leg swelling has practically resolved. Knee incision is clean and healing well with mild swelling. He is feeling a lot better. He has to take care of his also. He was readmitted no DVT. Kidney functions would be observed. The patient has already talked about kidney function again and advised referral to [facility] which he has declined. No nonsteroidal antiinflammatory discussed with the patient. CONDITION: Stable CARDIOVASCULAR STATUS: Stable. TIME SPENT: More than 30 minutes. Plan and coordination of the patient's care discussed in the presence of nurse. PRABHJOT
--- NOTE | 2021-01-17 10:43 | PN ---
01/10/2021: level 5 01/11/2021: Intermediate 01/12/2021: Intermediate 01/13/2021: D as in discharge MTDD
== END 2021-01-13 12:40 | disposition home or self-care (01) | DRG 561 ==
LOC: LAB 13:58 → MEDSURG A 16:15
PROVIDERS: ADMIT Internal Medicine; ATTEND Internal Medicine